=== PATIENT | female | born 2000 | race Caucasian/White ===

== ENCOUNTER 2022-09-19 04:10 | Emergency (ER) | payer BC, OTHER ==
[~2022-09-19] VITALS: Ht 162.6 cm; Wt 47.7 kg
[2022-09-19 06:13] LABS: Basophils # (auto) 0 10 ^3/uL (0-0.2); Basophils % (auto) 0.1 % (0.0-2.0); Eosinophils # (auto) 0.2 10 ^3/uL (0-0.8); Eosinophils % (auto) 1.4 % (0.0-7.0); Hematocrit 41.1 % (36.0-46.0); Hemoglobin 14.4 g/dL (12.2-16.2); Lymphocytes % (auto) 13.2 % (10.0-50.0); Mean Corpuscular Hemoglobin 29.1 pg (28.0-32.0); Mean Corpuscular Hgb Conc. 34.9 g/dL (32.0-36.0); Mean Corpuscular Volume 83.4 fL (80.0-100.0); Monocytes # (auto) 1.3 10 ^3/uL (0-1.3); Monocytes % (auto) 8.4 % (0.0-12.0); Neutrophils # (auto) 11.8 10 ^3/uL (1.6-8.6); Neutrophils % (auto) 76.9 % (37.0-80.0); Nucleated Red Blood Cells % 0.2 %; Red Blood Cells 4.93 10^6/uL (4.0-5.20); White Blood Cell 15.4 10^3/uL (4.4-10.8)
[2022-09-19 06:16] LABS: Urine Bacteria FEW /hpf (None Seen); Urine Blood Negative /uL (Negative); Urine Mucus FEW (None Seen); Urine Specific Gravity 1.022 (1.001-1.035); Urine WBC 6 /hpf (0 - 5)
[2022-09-19 06:29] LABS: Albumin 3.8 g/dL (3.4-5.0); Potassium 3.5 mmol/L (3.5-5.1)
[2022-09-19] MEDS ORDERED: MAALOX PLUS or MAALOX 30 ML PO ONE (06:30)
[2022-09-19] MEDS ORDERED: ONDANSETRON ODT 4 MG TAB PO ONE (06:30)
[2022-09-19] MEDS ORDERED: FAMOTIDINE 20 MG TAB PO ONE (06:30)
[2022-09-19] MEDS ORDERED: LIDOCAINE VISCOUS 2% 15ML UD PO ONE (06:30)
[2022-09-19 06:32] LABS: BUN/Creatinine Ratio 7.7 (10.0-20.0); Bilirubin, Total 0.7 mg/dL (0.2-1.0); Total Protein 6.8 g/dL (6.4-8.2)
[2022-09-19 06:57] VITALS: BP 93/56
[2022-09-19] MEDS ORDERED: CEPH-322 PO (08:09)
== END 2022-09-19 08:10 | disposition home or self-care (01) ==
LOC: ER 04:10
DX: K52.9 Noninfective gastroenteritis and colitis, unspecified (principal); N39.0 Urinary tract infection, site not specified
CPT/HCPCS: 36415; 80053; 81001; 81025; 83690; 85025; 99284; Q0162